=== PATIENT | male | born 1935 | race Caucasian/White ===

== ENCOUNTER 2018-08-19 18:36 | Inpatient (IN) ==
[~2018-08-19 18:36] MED LIST: HEPARIN SOD (PORCINE) 1000 UNIT/ML 10 ML VIAL ONE; TICAGRELOR 90 MG TAB PO ONE
[2018-08-19] MEDS ORDERED: HEPARIN (PORCINE) 1000 UNIT/ML 10 ML (CATH LAB USE ONLY) ONE (18:48)
[2018-08-19] MEDS ORDERED: MIDAZOLAM HCL 1 MG/ML 2ML VIAL ONE (18:48)
[2018-08-19] MEDS ORDERED: fentaNYL citrate 100 MCG/2 ML VIAL ONE (18:48)
[2018-08-19] MEDS ORDERED: NITROGLYCERIN/D5W 100MCG/ML 20ML SYR ONE (18:48)
[2018-08-19] MEDS ORDERED: NiCARDipine HCL INJ 2.5 MG/ML 10 ML AMP ONE (18:48)
[2018-08-19] MEDS ORDERED: Heparin BOLUS **ED Use Only IV SCH (18:50)
[2018-08-19 18:52] LABS: Basophils # (auto) 0.01 K/uL (0-0.2); Basophils % (auto) 0.1 %; Eosinophils # (auto) 0.06 K/uL (0-0.5); Eosinophils % (auto) 0.5 %; Hematocrit (blood only) 41.4 % (42-52); Hemoglobin 14.2 g/dL (14.0-18.0); Immature Granulocytes # (auto) 0.03 K/uL (0.00-0.02); Immature Granulocytes % (auto) 0.3 %; Lymphocytes # (auto) 2.45 K/uL (1.2-3.4); Lymphocytes % (auto) 20.5 %; Mean Corpuscular Hgb Conc 34.3 g/dL (32-36); Mean Corpuscular Volume 95.6 fL (80-100); Mean Platelet Volume 9.8 fL (7.4-10.4); Monocytes # (auto) 0.88 K/uL (0.11-0.59); Monocytes % (auto) 7.4 %; Neutrophils # (auto) 8.54 K/uL (1.4-6.5); Neutrophils % (auto) 71.2 %; Platelet Count 178 K/uL (130-400); RDW Coefficient of Variation 13.2 % (11.5-14.5); RDW Standard Deviation 46.1 fL (36.4-46.3); Red Blood Count 4.33 M/uL (4.7-6.1); White Blood Count 11.97 K/uL (4.8-10.8)
--- NOTE | 2018-08-19 19:00 | Pre Anesthesia Assessment ---
Date of Service August 19, 2018 Pre Sedation Assessment Vital Signs Temp Pulse Resp BP Pulse Ox 08/19/18 18:47 97 08/19/18 18:40 36.6 C 61 20 116/73 97 08/19/18 18:30 54 L 20 98 Cardiovascular RRR, no murmur, no edema Respiratory normal respiratory effort, lungs clear to auscultation Pre-Sedation Airway Assessment Smoking Status: Current every day smoker Hx Sleep Apnea: No Hx Difficult Intubation: No Short, Thick Neck: No Thyromental Distance: > or= 3.5 Finger Breadths Mallampati Class: III Procedure Planning Contraindications for Sedation: none Current Medications Reviewed: Yes Notes The planned sedation has been discussed with the patient. Informed Consent was obtained. I have identified the patient, determined the appropriateness of sedation and have assessed the patient immediately prior to the procedure. All medicine(s) and interventions are by my order.
[2018-08-19 19:02] LABS: iSTAT Creatinine 1.1 mg/dl (0.6-1.3); iSTAT Hemoglobin 14.6 g/dl (14.0-18.0); iSTAT Ionized Calcium 1.22 mmol/l (1.12-1.32); iSTAT Potassium 4.1 mEq/L (3.3-5.0)
[2018-08-19 19:03] LABS: Partial Thromboplastin Ratio 0.8; Partial Thromboplastin Time 22.5 Seconds (21.0-31.0); Prothrombin Time 10.3 Seconds (9.0-12.0)
[2018-08-19 19:09] LABS: Alanine Aminotransferase 18 U/L (12-78); Albumin Level 3.6 gm/dl (3.4-5.0); Aspartate Aminotransferase 17 U/L (15-37); BUN Creatinine Ratio 16.9 (10-20); Blood Urea Nitrogen 20 mg/dl (7-18); Calcium 9.5 mg/dl (8.5-10.1); Carbon Dioxide 25 mmol/L (21-32); Chloride 107 mmol/L (98-107); Est GFR (African American) 64.8; Est GFR (Non-African American) 55.9; Glucose 141 mg/dl (70-99); Potassium 4.3 mmol/L (3.5-5.1); Sodium 140 mmol/L (136-145)
--- NOTE | 2018-08-19 19:09 | Cardiology Consultation ---
Date of Consultation August 19, 2018 Assessment & Plan (1) ACS (acute coronary syndrome): Presentation consistent with lateral STEMI and recommend proceeding with emergent cardiac catheterization and likely primary PCI. No apparent contraindications to procedure. Discussed risks, benefits, alternatives of procedure with patient and they are willing to proceed. Given IV heparin and aspirin in the ED. Further recommendations pending findings of coronary angiography. History of Present Illness History of Present Illness 83-year-old male here with acute chest pain and ECG concerning for acute VA. Patient seen emergently in the ED after heart alert activated upon arrival. Past cardiac history largely unremarkable, echo in 2016 showed preserved LV function with mild MR, grade 1 diastolic dysfunction. Cardiac risk factors include hypertension. Other medical issues include chronic venous insufficiency, glaucoma. Chest pain began this afternoon while walking up a hill to go fishing. 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 Was prescribed SL nitroglycerin at that time. Describes 7 out of 10 pain with associated nausea and initial bowel incontinence. Given 7 sublingual nitroglycerin in route and in the ED and aspirin. Chest pain at time of arrival 5/10. Hemodynamically stable. EKG showed sinus bradycardia with occasional PVCs, septal infarct, subtle ST elevations in 1 and aVL and large peaked T waves across the precordium. Allergies Allergy/AdvReac Type Severity Reaction Status Date / Time PCN Allergy Unknown Unknown Uncoded 08/19/18 19:07 Home Medications Home Medications Medication Instructions Recorded Confirmed Type Unknown Eye Drops 0 drp OPB UD 08/19/18 08/19/18 History valsartan 80 mg PO DAILY 08/19/18 08/19/18 History Patient History Social History Preferred Language: Mauritanian Feels Safe at Home: Yes Review of Systems Review of Systems: Not obtained in the setting of emergent situation Physical Exam Physical Exam: General: Uncomfortable Eyes: Sclerae anicteric HENT: Oropharynx clear Lungs: Clear to auscultation bilaterally, no rhonchi or wheezes Cardiac: Bradycardic, regular, no murmurs Vascular: 2+ radial bilaterally. Distal varicosities and venous stasis changes Abdomen: Soft, nontender, nondistended, positive bowel sounds. Extremities: Well perfused, trace bilateral lower extremity edema Neuro: Nonfocal Psych: Alert orient x3, normal affect and mood Results & Data Vital Signs (Past 12 Hours) Vital Signs Temp Pulse Resp BP Pulse Ox 08/19/18 18:47 97 08/19/18 18:40 36.6 C 61 20 116/73 97 08/19/18 18:30 54 L 20 98
[2018-08-19 19:14] LABS: Albumin Globulin Ratio 0.9 (0.9-2); Alkaline Phosphatase 55 U/L (45-117); Bilirubin,Total 0.7 mg/dl (0.2-1); Creatine Kinase 64 U/L (39-308); Creatine Kinase MB 3.9 ng/ml (0.5-3.6); Globulin 3.8 gm/dl (2.5-4.0); Total Protein 7.4 gm/dl (6.4-8.2)
--- NOTE | 2018-08-19 19:40 | XRay Report ---
XR chest 1V portable CLINICAL HISTORY: 83 years-old Male presenting with Chest pain. TECHNIQUE: Portable upright AP view of the chest was obtained. COMPARISON: None. FINDINGS: Atherosclerosis of the aortic arch. Cardiac silhouette enlarged. Posterior vascular prominence and br onchial wall cuffing. Mildly low lung volumes. Added density at the lung bases with suspected small b ilateral pleural effusions. No large pneumothorax. Degenerative changes of the thoracic spine. Upper abdomen normal. IMPRESSION: 1. Cardiac megaly with volume overload and congestive change. Early/developing pulmonary edema not e xcluded. 2. Suspected small bilateral pleural effusions. Electronically signed by: Jf Gomez M.D. 08/19/2018 7:38 PM
[2018-08-19] MEDS ORDERED: ACETAMINOPHEN 325 MG TAB PO PRN (20:13)
[2018-08-19] MEDS ORDERED: ONDANSETRON INJ 2 MG/ML 2 ML VIAL IV PRN (20:13)
[2018-08-19] MEDS ORDERED: ICU PROTOCOL FOR HYPERGLYCEMIA PRN ×2 (20:19→22:06)
--- NOTE | 2018-08-19 20:25 | Post Anesthesia Assessment ---
Date of Service August 19, 2018 Post Sedation Assessment Vital Signs Temp Pulse Resp BP Pulse Ox 08/19/18 18:47 97 08/19/18 18:40 36.6 C 61 20 116/73 97 08/19/18 18:30 54 L 20 98 Recovery Score Activity: Moves 4 extremities Respiration: Deep Breath/Cough Circulation: +/-20% PreAnes Value Consciousness: Fully Awake Oxygen Saturation: O2 needed for >90% Discharge Sedation Level of Care: Fast Track Phase II Post Sedation Plan On clinical assessment, the patient appears to have tolerated the sedation without complications. Patient is recovering as anticipated. Patient will continue to be monitored by nursing and may be discharged when sedation discharge criteria are met per below protocol. Upon Completions of procedure and additional 15 minutes continue every 5 minute vital signs and the P.A.R. score; then discharge to a Phase I or Fast Track to Phase II per the following guidelines: * Discharge Patient to appropriate Phase II area if PAR is 8 or greater or return to pre- procedure baseline. The post - procedure orders will be as directed. * If PAR score is less than 8 or not return to pre-procedure baseline then patient will follow Phase I monitoring till PAR is reached for Phase II. The Phase I may be done in procedure room or may call to secure a Phase I area. * If naloxone or flumazenil are used for reversal, hold in Phase I for continued monitoring from when last reversal dose was given for a minimum of 60 minutes or longer pending the nurse and/or physician discretion of patient condition before discharge to Phase II. Please call the Sedation Physician to re-evaluate and complete post-note for discharge to Phase II area. Do NOT discharge from procedure sedation or Phase 1 until post- sedation evaluation note is complete by procedure /sedation MD Sedation Discharge Instructions to be given to the patient at discharge to home.
--- NOTE | 2018-08-19 20:38 | Cardiac Catheterization ---
Cardiac Cath Procedure Full Procedure Date August 19, 2018 Pre-Procedure Diagnosis Pre-Procedure Diagnosis: STEMI AUC Score AUC Score: 9 Post-Procedure Diagnosis Post-Procedure Diagnosis: Severe CAD, Successful PCI and Elevated Intracardiac Pressures Procedure(s) Performed Procedure(s) Performed: Coronary Angiography, Left Heart Cath and Drug Eluting Stent Railroad Surveyor Josue Cotton MD Contact Agent(s) cassie Estimated Blood Loss Estimated Blood Loss: 15 Medication(s) Medication(s): Fentanyl, Heparin, Integrilin, Lidocaine 1%, Nicardipine, Nitroglycerin and Versed Medication(s): Ticagrelor Summary of Findings Indication: STEMI/Heart Alert 83-year-old man history of only hypertension and venous insufficiency here with approximately 2-3 hours of substernal chest pain, bowel incontinence. EKG showing lateral ST elevations and large peaked T waves across the precordium. Access: 6 Fr right radial artery Catheters: Galva, EBU 3.5 guide Findings: LM -short, almost separate ostia LAD -moderate caliber vessel, 100% acute occlusion earlymid LAD after takeoff of first septal, first diagonal. Branching first diagonal with mild to moderate disease. Circumflex -large caliber vessel, 20% ostial, luminal irregularities, large left PLB with 30% proximal disease RCA -dominant, 40% mid segment, latemid into distal with 50-60% stenosis. Small PDA without significant disease, mild disease in right PLB LVEDP -19 -- PCI -- Antithrombotic therapy: Heparin, IC Integrilin x1, ticagrelor Procedure: Left main cannulated with EBU 3.5 guide BMW wire passed across lesion into distal vessel Mid LAD lesion predilated with 2.0 compliant balloonplan to have extensive mid LAD disease extending almost down to second diagonal Mid LAD stented with 2.75 x 33 mm Xience Florecita Earlymid LAD stented with 3.5 x 12 Xience Florecita which overlapped with proximal aspect of initial stent Stent post-dilated with 3.5 noncompliant balloon IC vasodilators administered for spasm Post procedure RENETTA 3 flow, stent well expanded with minimal residual stenosis and no apparent cardiac complications. Arterial Closure: TR band Summary: 1. Anterior STEMI/Occluded mid LAD 2. Mild to moderate non-culprit coronary artery disease -50-60% mid to distal RCA 30% proximal large left PLB 3. Elevated intracardiac filling pressure 4. Successful PCI of diffuse mid LAD disease with 2 overlapping drug-eluting stents (3.5 x 12, 2.75 x 33 mm Xience Florecita; postdilated with 3.5 NC). 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 Trend troponins until peak, Check Echo Uptitrate beta-quintin/FAUSTO as BP allows High-dose statin Consult cardiac Rehab Hemodynamics Rest Ao:: 130/66/93 Final Ao: 117/61/86 LV: 118/19 Recommendations Recommendations: PCI without planned CABG Specimens Specimens: None Radiation Exposure (mGy) 2056 Contrast (mls) 190 Fluids (cc crystalloids) Fluids (cc crystalloids): 82 Drains Drains: None Anesthesia Moderate Procedural Complication(s) None Disposition ICU ACC Data: Plant Controls Specialist Cardiac Status Clinical evaluation leading to the procedure CAD Presenation: STEMI Anginal Classification: CCS IV Heart Failure: No Cardiogenic Shock within 24 Hours: No Cardiac Arrest within 24 Hours: No Imaging Studies Past 6 Months: No Stress Studies Past 6 Months: No Diagnostic Physicians Name: Josue Cotton MD Status: Emergency Closure Device Percutaneous Entry Location: Radial Closure Device: Radial Band Recommendations: PCI without planned CABG PCI Indication: Immediate PCI for STEMI First Noted: Subsequent EKG Lesion Segment Name: Mid LAD Culprit Artery: Yes Stenosis Prior to Rx (%): 100 Chronic Total Occlusion: No FFR: No Pre-Procedure RENETTA Flow: 0 Previously Treated Lesion: No Lesion Complexity: Non-High/Non-C Lesion Length (mm): 35 Thrombus Present: Yes Bifurcation Lesion: No Guidewire Across Lesion: Stenosis Post-Procedure (%): 0 Post-Procedure RENETTA Flow: 3 Devices(s) Deployed: Yes Yes Intraprocedure Events Significant Disection: No Perforation: No
[2018-08-19] MEDS: METOPROLOL TARTRATE 25 MG TAB PO SCH (21:16)
[2018-08-19] MEDS: SODIUM CHLORIDE 0.9% 1000ML 1,000 ML IV SCH (21:16)
--- NOTE | 2018-08-19 22:11 | Critical Care Consultation ---
Date of Consultation August 19, 2018 Assessment & Plan (1) ST elevation (STEMI) myocardial infarction: Reason Critically Ill: 83-year-old male with STEMI status post CAMI stent placement x2 to the LAD Neuro - CAM ICU: Negative Cardiac - STEMIS/P CAMI stent x2 to LAD by Dr. Cotton, will follow his recommendation -Integrilin administered in [facility] -Monitoring on telemetry -Follow-up a.m. lipid profile, hemoglobin A1c -Follow-up a.m. echo -Every 6 hours troponins to trend -EKGs as needed -ASA, Lipitor, Brilinta, valsartan HTNcontinue home valsartan Venous insufficiencycompression stockings Respiratory - No pulmonary history, mild pulmonary edema and small bilateral pleural effusions on chest x-ray, currently on room air, will monitor GI - Heart healthy diet RENAL/LYTES - Routine BMPs, maximize electrolytes, creatinine/BUN within normal limits - Voiding, no current issue ENDO - ICU hypoglycemic protocol, follow-up hemoglobin A1c HEME - H&H stable, routine CBCs ID - Positive MRSA nasal swab, no evidence of current infectious process, monitor LINES/IV ACCESS - Peripheral IVs DVT PROPHYLAXIS - SCDs, CODE STATUSas discussed with patient and daughter, patient is to remain a full code at this time. Agree with above, case discussed with my colleague Arron Florence PA-C, for the details of my progress note. (2) ACS (acute coronary syndrome): (3) HTN (hypertension): (4) Venous insufficiency (chronic) (peripheral): History of Present Illness Attending Physician: Alex Lyon MD History of Present Illness 83-year-old male with past medical history hypertension, PVD, and family history of cardiac disease who presented to the ED around 1800 with chest pain described as pressure radiating to the right side of chest that started around 1600 earlier today. Patient states that he was fishing when pain began, he went home and met his daughter who is an ICU nurse. She gave him nitro x4 with no alleviation. EMS was called and gave him nitro and aspirin in route. In the ED, EKG showed anterior septal STEMI, troponins elevated. Heart code initiated and patient was started on heparin drip and taken to [facility] where he received CAMI stent placement x2 to the LAD and was loaded with Brilinta. Upon arrival to the ICU the patient is alert and oriented x4 and appears comfortable on room air. He denies chest pain, shortness of breath, palpitations, syncope, nausea vomiting, changes in vision, changes in mentation, headache, or abdominal pain. He does report a slight numbness in his right fingertips, but has good color and capillary refill and pulses distal to cath site. He remains hemodynamically stable and is sinus rhythm on monitor with occasional PVCs, not requiring vasopressors. We will continue to monitor in ICU overnight for now. Allergies Allergy/AdvReac Type Severity Reaction Status Date / Time Penicillins Allergy Unknown Verified 08/19/18 20:43 Home Medications Home Medications Medication Instructions Recorded Confirmed Type Unknown Eye Drops 0 drp OPB UD 08/19/18 08/19/18 History valsartan 80 mg PO DAILY 08/19/18 08/19/18 History Patient History Medical History HTN (hypertension) Social History Preferred Language: Malay Communication Ability: Effective Social Services Analyst Required: No Beliefs That Will Affect Care: None Current Living Situation: Family Other Information That Helps Us Care for You: No Feels Safe at Home: Yes Safety Concerns: Feels Safe At This Time Smoking Status: Never smoker Do You Dip or Chew Tobacco: No Second Hand Exposure: No Tobacco Cessation Education Requested by Patient: No Hx Alcohol Use: No Hx Substance Use: No Review of Systems Review of Systems: All systems reviewed & are unremarkable except as noted in HPI & below Physical Exam Eyes: PERRL, conjunctivae normal, anicteric sclerae ENMT: external ear and nose normal, oropharynx normal Neck: trachea midline, no thyromegaly Respiratory: normal respiratory effort, lungs clear to auscultation Cardiovascular: RRR, no murmur, no edema Extremities: normal capillary refill Gastrointestinal (Abdomen): normal bowel sounds, soft, nontender, no hepatosplenomegaly Musculoskeletal: no cyanosis or clubbing, extremities motor strength 5/5 Skin: no rashes, warm and dry Neurologic: PERRL, EOMI, accommodation nl, no face palsy, no dysarthria Results & Data Vital Signs (Past 12 Hours) Vital Signs Temp Pulse Pulse Resp BP BP Pulse Ox 08/19/18 21:13 36.6 C 75 75 17 126/81 94 08/19/18 21:06 08/19/18 18:47 97 08/19/18 18:40 36.6 C 61 20 116/73 97 08/19/18 18:30 54 L 20 98 Pulse Ox 08/19/18 21:13 08/19/18 21:06 94 08/19/18 18:47 08/19/18 18:40 08/19/18 18:30 Laboratory Results Laboratory Results - last 24 hr 08/19/18 08/19/18 08/19/18 18:28 18:38 18:38 WBC 11.97 H RBC 4.33 L Hgb 14.2 POC Hgb Hct 41.4 L POC Hct MCV 95.6 MCH 32.8 MCHC 34.3 RDW Std Deviation 46.1 RDW Coeff of Jackelyn 13.2 Plt Count 178 MPV 9.8 Immature Gran % (Auto) 0.3 Neut % (Auto) 71.2 Lymph % (Auto) 20.5 Andrews % (Auto) 7.4 Eos % (Auto) 0.5 Baso % (Auto) 0.1 Immature Gran # (Auto) 0.03 H Neut # (Auto) 8.54 H Lymph # (Auto) 2.45 Andrews # (Auto) 0.88 H Eos # (Auto) 0.06 Baso # (Auto) 0.01 PT 10.3 INR 1.0 APTT 22.5 PTT Ratio 0.8 Activ Coag Time Kaolin 180 H POC Sodium Sodium POC Potassium Potassium POC Chloride Chloride Carbon Dioxide POC Total CO2 Anion Gap POC Anion Gap POC BUN BUN Creatinine POC Creatinine Est Cr Clr Drug Dosing Est GFR ( Amer) Est GFR (Non-Af Amer) BUN/Creatinine Ratio Glucose POC Glucose (other) Calcium POC Ioniz Calcium Jayson Magnesium Total Bilirubin AST ALT Alkaline Phosphatase Total Creatine Kinase CK-MB (CK-2) CK/CKMB % Calc POC Troponin I Total Protein Albumin Globulin Albumin/Globulin Ratio Lipase Nasal Screen MRSA (PCR) 08/19/18 08/19/18 08/19/18 18:38 18:47 18:48 WBC RBC Hgb POC Hgb 14.6 Hct POC Hct 43 MCV MCH MCHC RDW Std Deviation RDW Coeff of Jackelyn Plt Count MPV Immature Gran % (Auto) Neut % (Auto) Lymph % (Auto) Andrews % (Auto) Eos % (Auto) Baso % (Auto) Immature Gran # (Auto) Neut # (Auto) Lymph # (Auto) Andrews # (Auto) Eos # (Auto) Baso # (Auto) PT INR APTT PTT Ratio Activ Coag Time Kaolin POC Sodium 140 Sodium 140 POC Potassium 4.1 Potassium 4.3 POC Chloride 104 Chloride 107 Carbon Dioxide 25 POC Total CO2 23 L Anion Gap 8.0 POC Anion Gap 18.0 POC BUN 19 H BUN 20 H Creatinine 1.18 POC Creatinine 1.1 Est Cr Clr Drug Dosing Not Reportable Est GFR ( Amer) 64.8 Est GFR (Non-Af Amer) 55.9 BUN/Creatinine Ratio 16.9 Glucose 141 H POC Glucose (other) 144 H Calcium 9.5 POC Ioniz Calcium Jayson 1.22 Magnesium 2.0 Total Bilirubin 0.7 AST 17 ALT 18 Alkaline Phosphatase 55 Total Creatine Kinase 64 CK-MB (CK-2) 3.9 H CK/CKMB % Calc 6.1 H POC Troponin I 0.39 H Total Protein 7.4 Albumin 3.6 Globulin 3.8 Albumin/Globulin Ratio 0.9 Lipase 75 Nasal Screen MRSA (PCR) 08/19/18 20:20 WBC RBC Hgb POC Hgb Hct POC Hct MCV MCH MCHC RDW Std Deviation RDW Coeff of Jackelyn Plt Count MPV Immature Gran % (Auto) Neut % (Auto) Lymph % (Auto) Andrews % (Auto) Eos % (Auto) Baso % (Auto) Immature Gran # (Auto) Neut # (Auto) Lymph # (Auto) Andrews # (Auto) Eos # (Auto) Baso # (Auto) PT INR APTT PTT Ratio Activ Coag Time Kaolin POC Sodium Sodium POC Potassium Potassium POC Chloride Chloride Carbon Dioxide POC Total CO2 Anion Gap POC Anion Gap POC BUN BUN Creatinine POC Creatinine Est Cr Clr Drug Dosing Est GFR ( Amer) Est GFR (Non-Af Amer) BUN/Creatinine Ratio Glucose POC Glucose (other) Calcium POC Ioniz Calcium Jayson Magnesium Total Bilirubin AST ALT Alkaline Phosphatase Total Creatine Kinase CK-MB (CK-2) CK/CKMB % Calc POC Troponin I Total Protein Albumin Globulin Albumin/Globulin Ratio Lipase Nasal Screen MRSA (PCR) Positive A Medications Administered Home Medications Unknown Eye Drops 0 drp OPB UD 08/19/18 [History Confirmed 08/19/18] valsartan 80 mg PO DAILY 08/19/18 [History Confirmed 08/19/18] Active Medications Acetaminophen (Tylenol) 650 mg PO Q4H PRN PRN Reason: Mild Pain (scale 1-3) Stop: 09/18/18 20:12 [facility] [place]: 09/19/18 08:59 Atorvastatin Calcium (Lipitor) [facility] [place]: 09/19/18 08:59 Sodium Chloride (Nss 1000ml) 1,000 mls @ 100 mls/hr IV .Q10H [facility] Stop: 09/18/18 20:14 Last Admin: 08/19/18 21:16 Dose: 100 mls/hr Documented by: Metoprolol Tartrate (Lopressor) 12.5 mg PO BID [facility] Stop: 09/18/18 20:59 Last Admin: 08/19/18 21:16 Dose: 12.5 mg Documented by: Miscellaneous (Icu Protocol For Hyperglycemia) 1 ea N/A PRN PRN; Protocol PRN Reason: Hyperglycemia Protocol Stop: 08/21/18 20:18 Ondansetron HCl (Zofran) 4 mg IV Q6H PRN PRN Reason: Nausea And Vomiting Stop: 09/18/18 20:12 Pantoprazole Sodium (Protonix) [facility] [place]: 08/24/18 08:59 Ticagrelor (Brilinta) 90 mg PO BID [facility] Stop: 09/19/18 08:59 Valsartan (Diovan) 80 mg PO DAILY [facility] Stop: 09/19/18 08:59 (1) ST elevation (STEMI) myocardial infarction Involved coronary artery: unspecified coronary artery Qualified Code(s): I21.3 - ST elevation (STEMI) myocardial infarction of unspecified site
--- NOTE | 2018-08-19 22:25 | Emergency Department Note ---
Entered by Cristian Nicole acting as a scribe for History of Present Illness General Chief complaint: Heart Alert Stated complaint: HEART ALERT Source: patient, family and EMS Mode of arrival: EMS Limitations: no limitations History of Present Illness Provider complaint: Chest pain Onset (ago): hour(s) (1) Location: chest and left Radiation: non-radiation Pain Consistency: + constant and + other (improved) Current Pain Intensity: 5 Quality: + other ("Crushing") Associated symptoms: no fever/chills and no shortness of breath Treatments prior to arrival: other (324 Aspirin, 7 of Nitro, Fentanyl 100 mcg, 4 Zofran. ) The patient is an 83 year old male who presents to the Emergency Room with complaints of chest pain. 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 This episode of chest pain resolved spontaneously. The patient's daughter at bedside, who is an ICU nurse, notes that he began to complain of feeling generally unwell today at 1530, about 3 hours prior to arrival. He went fishing at around 1600 and states that he began to feel chest pain at 1630 [place] This chest pain progressively worsened until he got home and was a 7/10 in severity at its worst. There was no shortness of breath at anytime. When he arrived home the daughter administered 4 nitroglycerin tablets and called 911. EMS administered 3 further nitro tablets as well as 324 of Aspirin. EMS also administered 100 of Fentanyl and 4 mg of Zofran after Medical Command Call. He describes his chest pain this evening as "crushing" and rates the current pain as a 5/10. There was no radiation of the pain to his arm, neck, or back. He denies any associated fever or abdominal pain. The patient notes that he went on a 1 mile run on Sunday, 2 days ago. He did not feel any chest pain, but he did not feel like he normally would on his runs. The patient has a history of hypertension, but has no other cardiac history. He has a strong family history or cardiac disease. Home Medications Home Medications Medication Instructions Recorded Confirmed Type Unknown Eye Drops 0 drp OPB UD 08/19/18 08/19/18 History valsartan 80 mg PO DAILY 08/19/18 08/19/18 History Allergies Allergy/AdvReac Type Severity Reaction Status Date / Time Penicillins Allergy Unknown Verified 08/19/18 20:43 Past Med/Surg History Medical History HTN (hypertension) Social History Preferred Language: Welsh Communication Ability: Effective Preservationist Required: No Beliefs That Will Affect Care: None Current Living Situation: Family Other Information That Helps Us Care for You: No Feels Safe at Home: Yes Safety Concerns: Feels Safe At This Time Smoking Status: Never smoker Do You Dip or Chew Tobacco: No Second Hand Exposure: No Tobacco Cessation Education Requested by Patient: No Hx Alcohol Use: No Hx Substance Use: No Review of Systems See HPI for pertinent positives & negatives. and A total of 10 systems reviewed and were otherwise negative Physical Exam Vital Signs Vital Signs - 24 hr 08/19/18 18:30 08/19/18 18:40 08/19/18 18:47 Temperature 36.6 C Temperature Source Oral Sepsis Recent Fever Within 48 Hours No Sepsis New/Unexplained Change in Mental Status No Sepsis Action Taken by Nursing No Action Required Pulse Rate 54 L 61 Pulse Rate [Apical] Pulse Rhythm Regular Regular Pulse Strength Normal Respiratory Rate 20 20 Respiratory Effort / Characteristics Non-Labored Spontaneous Respiratory Depth Normal Respiratory Pattern Regular Blood Pressure 116/73 Blood Pressure [Left Arm] Blood Pressure Mean 87 Blood Pressure Mean [Left Arm] Blood Pressure Position Sitting Pulse Oximetry 98 97 97 Pulse Oximetry [Left Middle Finger] Oxygen Delivery Method Nasal Cannula Room Air Room Air Oxygen Delivery Method [Left Middle Finger] Oxygen Flow Rate 2 2 08/19/18 21:06 08/19/18 21:13 Temperature 36.6 C Temperature Source Oral Sepsis Recent Fever Within 48 Hours Sepsis New/Unexplained Change in Mental Status Sepsis Action Taken by Nursing Pulse Rate 75 Pulse Rate [Apical] 75 Pulse Rhythm Pulse Strength Respiratory Rate 17 Respiratory Effort / Characteristics Respiratory Depth Respiratory Pattern Blood Pressure Blood Pressure [Left Arm] 126/81 Blood Pressure Mean Blood Pressure Mean [Left Arm] 96 Blood Pressure Position Pulse Oximetry 94 Pulse Oximetry [Left Middle Finger] 94 Oxygen Delivery Method Room Air Oxygen Delivery Method [Left Middle Finger] Room Air Oxygen Flow Rate Constitutional: Vital signs reviewed. Eyes: Pupils are equal round reactive to light. Conjunctiva are noninjected. ENT: Pharynx is clear without erythema or exudate. Mucous membranes are moist. Neck supple without meningeal signs. Respiratory: Clear to auscultation bilaterally. Breath sounds are equal bilaterally. Cardiovascular: Regular rate and rhythm. No rubs or gallops. GI: Soft, nondistended and nontender. Bowel sounds are present. Musculoskeletal: No peripheral edema. No lower extremity tenderness. Integumentary: No cyanosis. Neurological: The patient is awake and alert. No focal deficits. Psychiatric: Normal affect. Course 1834: The patient was evaluated in room B1, and a complete history and physical examination were performed. 1852: Dr. Cotton - Interventional Cardiology has arrived at bedside. He will take the patient to the supervisor laboratory animal facility. Administered Medications Sodium Chloride (Nss 1000ml) 1,000 mls @ 100 mls/hr IV .Q10H KATELYN Stop: 09/18/18 20:14 Last Admin: 08/19/18 21:16 Dose: 100 mls/hr Documented by: [id number] Metoprolol Tartrate (Lopressor) 12.5 mg PO BID KATELYN Stop: 09/18/18 20:59 Last Admin: 08/19/18 21:16 Dose: 12.5 mg Documented by: [id number] Discontinued Medications Fentanyl Citrate (Fentanyl Citrate) Confirm Administered Dose 100 mcg .ROUTE .STK-MED ONE Stop: 08/19/18 18:49 Last Increment: 08/19/18 20:17 Dose: 25 mcg Documented by: [id number] Heparin Sodium (Porcine) (Heparin Iv Bolus) Confirm Administered Dose 10,000 units .ROUTE .STK-MED ONE Stop: 08/19/18 18:33 Last Admin: 08/19/18 18:50 Dose: 5,000 units Documented by: [id number] Cosigned by: [id number] Heparin Sodium (Porcine) (Heparin Iv Bolus (Database Development Project Manager Use Only)) Confirm Administered Dose 10,000 units .ROUTE .STK-MED ONE Stop: 08/19/18 18:49 Last Admin: 08/19/18 20:17 Dose: 5,000 units Documented by: [id number] Heparin Sodium/Sodium Chloride (Heparin/Nss 1000 Unit/500ml Flush Bag) Confirm Administered Dose 3,000 units IV .STK-MED ONE Stop: 08/19/18 18:49 Last Admin: 08/19/18 20:17 Dose: 3,000 units Documented by: [id number] Midazolam HCl (Versed) Confirm Administered Dose 2 mg .ROUTE .STK-MED ONE Stop: 08/19/18 18:49 Last Increment: 08/19/18 20:17 Dose: 1 mg Documented by: [id number] Nicardipine HCl (Cardene) Confirm Administered Dose 25 mg .ROUTE .STK-MED ONE Stop: 08/19/18 18:49 Last Admin: 08/19/18 20:16 Dose: 25 mg Documented by: [id number] Nitroglycerin/Dextrose (Nitroglycerin/D5w 100 Mcg/Ml 20ml Syringe) Confirm Administered Dose 2,000 mcg .ROUTE .STK-MED ONE Stop: 08/19/18 18:49 Last Admin: 08/19/18 20:17 Dose: 2,000 mcg Documented by: [id number] Ticagrelor (Brilinta) Confirm Administered Dose 180 mg PO .STK-MED ONE Stop: 08/19/18 18:33 Last Admin: 08/19/18 18:50 Dose: Not Given Documented by: [id number] Medical Decision Making Differential Diagnosis Differential Diagnosis includes: STEMI, aortic aneurysm, aortic dissection, PE, pneumothorax, Medical Records Attestation: I reviewed the patient's medical records. Home Medications Current Medication List: was personally reviewed by me Laboratory Data Attestation: I reviewed the patient's lab results. Result diagrams: 08/19/18 18:38 08/19/18 18:38 Lab Results 08/19/18 08/19/18 08/19/18 Range/Units 18:28 18:38 18:38 WBC 11.97 H (4.8-10.8) K/uL RBC 4.33 L (4.7-6.1) M/uL Hgb 14.2 (14.0-18.0) g/dL POC Hgb (14.0-18.0) g/dl Hct 41.4 L (42-52) % POC Hct (42-52) % MCV 95.6 (80-100) fL MCH 32.8 (25-34) pg MCHC 34.3 (32-36) g/dL RDW Std Deviation 46.1 (36.4-46.3) fL RDW Coeff of Jackelyn 13.2 (11.5-14.5) % Plt Count 178 (130-400) K/uL MPV 9.8 (7.4-10.4) fL Immature Gran % (Auto) 0.3 % Neut % (Auto) 71.2 % Lymph % (Auto) 20.5 % Lenoir % (Auto) 7.4 % Eos % (Auto) 0.5 % Baso % (Auto) 0.1 % Immature Gran # (Auto) 0.03 H (0.00-0.02) K/uL Neut # (Auto) 8.54 H (1.4-6.5) K/uL Lymph # (Auto) 2.45 (1.2-3.4) K/uL Lenoir # (Auto) 0.88 H (0.11-0.59) K/uL Eos # (Auto) 0.06 (0-0.5) K/uL Baso # (Auto) 0.01 (0-0.2) K/uL PT 10.3 (9.0-12.0) Seconds INR 1.0 (0.9-1.1) APTT 22.5 (21.0-31.0) Seconds PTT Ratio 0.8 Activ Coag Time Kaolin 180 H (94-140) SECONDS POC Sodium (135-144) mEq/L Sodium (136-145) mmol/L POC Potassium (3.3-5.0) mEq/L Potassium (3.5-5.1) mmol/L POC Chloride (101-112) mEq/L Chloride (98-107) mmol/L Carbon Dioxide (21-32) mmol/L POC Total CO2 (24-31) mEq/l Anion Gap (3-11) POC Anion Gap (16-25) mmol/L POC BUN (7-18) mg/dl BUN (7-18) mg/dl Creatinine (0.6-1.4) mg/dl POC Creatinine (0.6-1.3) mg/dl Est Cr Clr Drug Dosing Est GFR ( Amer) Est GFR (Non-Af Amer) BUN/Creatinine Ratio (10-20) Glucose (70-99) mg/dl POC Glucose (other) (70-99) mg/dl Calcium (8.5-10.1) mg/dl POC Ioniz Calcium Jayson (1.12-1.32) mmol/l Magnesium (1.8-2.4) mg/dl Total Bilirubin (0.2-1) mg/dl AST (15-37) U/L ALT (12-78) U/L Alkaline Phosphatase (45-117) U/L Total Creatine Kinase (39-308) U/L CK-MB (CK-2) (0.5-3.6) ng/ml CK/CKMB % Calc (0-3.0) POC Troponin I (0-0.045) ng/ml Total Protein (6.4-8.2) gm/dl Albumin (3.4-5.0) gm/dl Globulin (2.5-4.0) gm/dl Albumin/Globulin Ratio (0.9-2) Lipase (73-393) U/L 08/19/18 08/19/18 08/19/18 Range/Units 18:38 18:47 18:48 WBC (4.8-10.8) K/uL RBC (4.7-6.1) M/uL Hgb (14.0-18.0) g/dL POC Hgb 14.6 (14.0-18.0) g/dl Hct (42-52) % POC Hct 43 (42-52) % MCV (80-100) fL MCH (25-34) pg MCHC (32-36) g/dL RDW Std Deviation (36.4-46.3) fL RDW Coeff of Jackelyn (11.5-14.5) % Plt Count (130-400) K/uL MPV (7.4-10.4) fL Immature Gran % (Auto) % Neut % (Auto) % Lymph % (Auto) % Lenoir % (Auto) % Eos % (Auto) % Baso % (Auto) % Immature Gran # (Auto) (0.00-0.02) K/uL Neut # (Auto) (1.4-6.5) K/uL Lymph # (Auto) (1.2-3.4) K/uL Lenoir # (Auto) (0.11-0.59) K/uL Eos # (Auto) (0-0.5) K/uL Baso # (Auto) (0-0.2) K/uL PT (9.0-12.0) Seconds INR (0.9-1.1) APTT (21.0-31.0) Seconds PTT Ratio Activ Coag Time Kaolin (94-140) SECONDS POC Sodium 140 (135-144) mEq/L Sodium 140 (136-145) mmol/L POC Potassium 4.1 (3.3-5.0) mEq/L Potassium 4.3 (3.5-5.1) mmol/L POC Chloride 104 (101-112) mEq/L Chloride 107 (98-107) mmol/L Carbon Dioxide 25 (21-32) mmol/L POC Total CO2 23 L (24-31) mEq/l Anion Gap 8.0 (3-11) POC Anion Gap 18.0 (16-25) mmol/L POC BUN 19 H (7-18) mg/dl BUN 20 H (7-18) mg/dl Creatinine 1.18 (0.6-1.4) mg/dl POC Creatinine 1.1 (0.6-1.3) mg/dl Est Cr Clr Drug Dosing Not Reportable Est GFR ( Amer) 64.8 Est GFR (Non-Af Amer) 55.9 BUN/Creatinine Ratio 16.9 (10-20) Glucose 141 H (70-99) mg/dl POC Glucose (other) 144 H (70-99) mg/dl Calcium 9.5 (8.5-10.1) mg/dl POC Ioniz Calcium Jayson 1.22 (1.12-1.32) mmol/l Magnesium 2.0 (1.8-2.4) mg/dl Total Bilirubin 0.7 (0.2-1) mg/dl AST 17 (15-37) U/L ALT 18 (12-78) U/L Alkaline Phosphatase 55 (45-117) U/L Total Creatine Kinase 64 (39-308) U/L CK-MB (CK-2) 3.9 H (0.5-3.6) ng/ml CK/CKMB % Calc 6.1 H (0-3.0) POC Troponin I 0.39 H (0-0.045) ng/ml Total Protein 7.4 (6.4-8.2) gm/dl Albumin 3.6 (3.4-5.0) gm/dl Globulin 3.8 (2.5-4.0) gm/dl Albumin/Globulin Ratio 0.9 (0.9-2) Lipase 75 (73-393) U/L Imaging Data Radiologist's Impression: XR chest 1V portable CLINICAL HISTORY: 83 years-old Male presenting with Chest pain. TECHNIQUE: Portable upright AP view of the chest was obtained. COMPARISON: None. FINDINGS: Atherosclerosis of the aortic arch. Cardiac silhouette enlarged. Posterior vascular prominence and bronchial wall cuffing. Mildly low lung volumes. Added density at the lung bases with suspected small bilateral pleural effusions. No large pneumothorax. Degenerative changes of the thoracic spine. Upper abdomen normal. IMPRESSION: 1. Cardiac megaly with volume overload and congestive change. Early/developing pulmonary edema not excluded. 2. Suspected small bilateral pleural effusions. Electronically signed by: Jf Gomez M.D. 08/19/2018 7:38 PM ECG Data Attestation: I personally reviewed and interpreted this ECG as follows: Indication: chest pain Rate (beats per minute): 54 Rhythm: sinus bradycardia Findings: + PVC and + ST elevation (anteriolateral - consistent with STEMI) Blood Pressure Blood Pressure Findings: Normal blood pressure MDM Narrative I did provide prehospital medical command for the patient. The patient's prehospital EKG per my interpretation demonstrates sinus bradycardia with anterior lateral ST elevations consistent with a STEMI. I did call a heart alert. I did look for an old EKG which was not available. I did recommend that they treat him with fentanyl and Zofran IV. I did evaluate the patient immediately on arrival as noted above. I did obtain history from the patient as well as his daughter who is an ICU nurse and EMS. The patient was placed on a continuous cardiac exercise specialist. I did order and personally review the patient's 12- lead EKG as described above. He has an anterior lateral STEMI. I did order and personally reviewed the images of the patient's chest x-ray as described above. He has some cardiomegaly with vascular congestion. I did order and review the patient's blood work as noted in the electronic medical record. Initial troponin is 0.39. I did discuss the case with the end trimmer in the emergency department. He was taken emergently to the catheterization lab for further care. Impression & Plan ST elevation (STEMI) myocardial infarction Critical Care Time I have personally spent 35 minutes of critical care time in the direct management of this patient. This includes bedside care, interpretation of diagnostic studies, and testing, discussion with consultants, patient, and family members, and other required patient management activities. This 35 minutes is in excess of all separately billable procedures. Critical Care Time: Yes Total Critical Care Time: 35 Discharge Plan Visit Data Chief Complaint: Heart Alert Stated Complaint: HEART ALERT ED Provider: Clemente Castillo Discharge Problem: ST elevation (STEMI) myocardial infarction Patient Disposition: Admitted As Inpatient Discharge Instructions Interventions: ED Discharge Assessment Last Done: 08/19/18 19:00 Discharge Problem: ST elevation (STEMI) myocardial infarction Qualifiers: Involved coronary artery: unspecified coronary artery Qualified Code(s): I21.3 - ST elevation (STEMI) myocardial infarction of unspecified site The scribe's documentation has been prepared under my direction and personally reviewed by me in its entirety. I confirm that the note above accurately reflects all work, treatment, procedures, and medical decision making performed by me.
[2018-08-20 05:01] LABS: Basophils # (auto) 0.01 K/uL (0-0.2); Basophils % (auto) 0.1 %; Eosinophils # (auto) 0.04 K/uL (0-0.5); Eosinophils % (auto) 0.4 %; Hematocrit (blood only) 39.7 % (42-52); Hemoglobin 13.1 g/dL (14.0-18.0); Immature Granulocytes # (auto) 0.03 K/uL (0.00-0.02); Immature Granulocytes % (auto) 0.3 %; Lymphocytes # (auto) 2.16 K/uL (1.2-3.4); Lymphocytes % (auto) 23.9 %; Mean Corpuscular Volume 95.9 fL (80-100); Mean Platelet Volume 9.9 fL (7.4-10.4); Monocytes # (auto) 0.84 K/uL (0.11-0.59); Monocytes % (auto) 9.3 %; Neutrophils # (auto) 5.96 K/uL (1.4-6.5); Platelet Count 172 K/uL (130-400); RDW Coefficient of Variation 13.4 % (11.5-14.5); RDW Standard Deviation 46.5 fL (36.4-46.3); Red Blood Count 4.14 M/uL (4.7-6.1); White Blood Count 9.04 K/uL (4.8-10.8)
[2018-08-20 05:19] LABS: BUN Creatinine Ratio 15.9 (10-20); Calcium 8.6 mg/dl (8.5-10.1); Creatinine Clr Calc Pharmacy 47.1 ml/min; Est GFR (African American) 69.8; Est GFR (Non-African American) 60.2; Magnesium 1.9 mg/dl (1.8-2.4)
[2018-08-20 05:30] LABS: Phosphorus 2.8 mg/dl (2.5-4.9); Troponin I 18.4 ng/ml (0-0.045)
[2018-08-20] MEDS: SODIUM CHLORIDE 0.9% 1000ML 1,000 ML IV SCH (05:38)
[2018-08-20] MEDS ORDERED: ONDANSETRON INJ 2 MG/ML 2 ML VIAL IV PRN (07:06)
[2018-08-20 07:16] LABS: Estimated Average Glucose 120 mg/dl; Hemoglobin A1C 5.8 % (4.5-5.6)
[2018-08-20] MEDS: ATORVASTATIN 40 MG TAB PO SCH (07:57)
[2018-08-20] MEDS: VALSARTAN 80 MG TAB PO SCH (07:57)
[2018-08-20] MEDS: ASPIRIN 81 MG ECTAB PO SCH (07:57)
[2018-08-20] MEDS: PANTOprazole 40 MG TAB PO SCH (07:57)
[2018-08-20] MEDS ORDERED: PROCHLORPERAZINE 5 MG in SYRINGE 4 ML IV PRN (08:05)
--- NOTE | 2018-08-20 08:14 | History and Physical Report ---
DATE OF ADMISSION: 08/19/2018 CHIEF COMPLAINT: Chest pain. HISTORY OF PRESENT ILLNESS: This is an 83-year-old male with past medical history significant for hypertension, venous insufficiency, sinus bradycardia, history of urinary retention and open angle glaucoma who presents with chest pain and found to have acute myocardial infarction and status post emergent cardiac catheterization and overlapping stents to mid left anterior descending, tolerated the procedure okay, currently chest pain free, resting comfortably in Intensive Care Unit, hemodynamically stable. Denies any shortness of breath. No nausea. No vomiting. No headache. No cough. No abdominal pain. Normal bowel and bladder movements. He has lower extremity edema on and off. No rash. 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 It went away after 1 hour and , then Sunday he went for 1 mile run again, after coming home, he was uncomfortable for some time and today he went fishing, walking uphill, brought the chest pain, so he came home and took a shower, pain was still the same, so he called his daughter who is a nurse and was brought in to the hospital, into the Emergency Room, an electrocardiogram showed sinus bradycardia septal infarct, subtle ST elevations in leads I and aVL and large peaked T waves in pericardium and he was taken to cardiac cath. Heart alert was called. Status post stents to mid left anterior descending lesion. There was 100% occlusion of the left anterior descending, currently resting comfortably. ALLERGIES: PENICILLIN. PAST MEDICAL HISTORY: As mentioned above. PAST SURGICAL HISTORY: Cataract surgery and inguinal hernia repair. MEDICATIONS: The patient is on valsartan 80 mg p.o. b.i.d., amlodipine 2.5 mg p.o. daily, latanoprost 0.005% ophthalmic solution 1 drop into right eye at bedtime, prednisone ophthalmic suspension 4 times a day, Cosopt 1 drop both eyes 2 times a day. FAMILY HISTORY: No significant family history. SOCIAL HISTORY: . No smoking. Alcohol occasional. No drug use. REVIEW OF SYMPTOMS: As per HPI. Rest of review of systems negative. PHYSICAL EXAMINATION: GENERAL: The patient is alert and awake, not in acute distress. VITAL SIGNS: Temperature is 36.6, pulse 74, respirations 17, blood pressure 126/80 and oxygen 94% on room air. HEENT: No pallor. No icterus. Pupils are equal, round and reactive to light. NECK: No JVD. No neck masses. No carotid bruits. CARDIOVASCULAR: S1, S2 heard. Regular rate and rhythm. No murmur. No gallop. RESPIRATORY SYSTEM: Normal AP diameter. No accessory muscle use. No wheezing. No crackles. ABDOMEN: Soft. Bowel sounds present. Nontender. No distention. CENTRAL NERVOUS SYSTEM: Cranial nerves II through XII grossly intact. Nonfocal. EXTREMITIES: Lower extremities, mild pedal edema present. Right wrist, cardiac cath site, no drainage seen. LABORATORY DATA: WBC 11.9, hemoglobin 14.2, hematocrit 41.4 and platelets 178. PT 10.3, INR 1, APTT 22.5. Sodium 140, potassium 4.3, chloride 107, CO2 of 25, BUN 20, creatinine 1.18, glucose 141, calcium 9.5, magnesium 2, total bilirubin 0.7, AST17, ALT 18, alkaline phosphatase 55, total creatinine kinase 64. Point of care troponin 0.39. Lipase 75. Chest x-ray, mild pulmonary edema. Electrocardiogram, sinus rhythm with PVCs at a rate of 65. Anteroseptal infarct present. ASSESSMENT AND PLAN: This is an 83-year-old male who presents with acute myocardial infarction. 1. Acute myocardial infarction, status post cardiac catheterization and found to have 100% occlusion of mid left anterior descending, status post 2 stents Loaded with Brilinta,started on aspirin, high dose statin, metoprolol 12.5 b.i.d., Follow serial cardiac enzymes, echocardiogram. Closely monitor in the Intensive Care Unit. Follow lipid profile. Further management as per Cardiology. 2. Hypertension, currently on Diovan and Lopressor. We will monitor his blood pressure. 3. Deep venous thrombosis prophylaxis, sequential compression devices. DISPOSITION: Closely monitor in the Intensive Care Unit. Level 1 full code. MTDD
[2018-08-20] MEDS: METOPROLOL TARTRATE 25 MG TAB PO SCH ×2 (09:17→21:20)
[2018-08-20] MEDS: TICAGRELOR 90 MG TAB PO SCH ×2 (09:18→21:21)
--- NOTE | 2018-08-20 09:35 | Cardiology Progress Note ---
Date of Service August 20, 2018 Assessment & Plan (1) ST elevation (STEMI) myocardial infarction: 2. Mild LV dysfunction EF 45-50%, apical akinesis 3. Moderate non-culprit coronary artery disease 4. Nonsustained VT, frequent PVCs 5. Hypertension 6. Chronic venous insufficiency Chest pain resolved, hemodynamically stable overnight. LV function largely preserved, modest troponin elevation. Well-perfused on exam. No significant congestion on exam. Dilated IVC on echo Stop IV fluids Continue dual anti-platelet therapy with aspirin, ticagrelor Continue low-dose beta-quintin and home valsartan Continue high intensity statin From a cardiac standpoint okay for transfer to telemetry today. Appreciate ICU and hospital medicine team care. Subjective Feeling okay this morning. Reports mild vertigo-like symptoms this morning. Denies chest pain. Denies significant shortness of breath. Telemetry reviewbrief episodes of nonsustained VT, max 11 beats. Review of Systems Review of Systems: All systems reviewed & are unremarkable except as noted in HPI & below Physical Exam Physical Exam: General: Comfortable, no acute distress Eyes: Sclerae anicteric HENT: Oropharynx clear mucous membranes moist Lungs: Clear to auscultation bilaterally, no rhonchi or wheezes Cardiac: Regular rate with occasional premature beat Vascular: Right radial artery access site with no ecchymosis, hematoma. Distal pulse and sensation intact. Abdomen: Soft, nontender, nondistended, positive bowel sounds. Extremities: Well perfused, no peripheral edema Skin: No rashes or lesions. Neuro: Nonfocal Psych: Alert orient x3, normal affect and mood Results & Data Vital Signs (Past 12 Hours) Vital Signs Temp Pulse Pulse Resp BP Pulse Ox Pulse Ox 08/20/18 08:00 36.8 C 54 L 84 20 110/62 96 97 08/20/18 06:00 57 L 12 138/67 97 08/20/18 05:00 53 L 17 129/71 96 08/20/18 04:00 37 C 48 L 14 111/59 L 95 08/20/18 03:00 52 L 17 134/70 96 08/20/18 02:00 50 L 16 112/66 95 08/20/18 01:00 54 L 19 106/45 L 96 08/20/18 00:00 36.7 C 53 L 17 101/48 L 95 08/19/18 22:15 64 15 132/76 96 08/19/18 22:06 56 L 08/19/18 22:00 73 19 145/80 H 97 08/19/18 21:45 74 15 119/82 96 08/19/18 21:30 87 16 128/75 97 (1) ST elevation (STEMI) myocardial infarction Involved coronary artery: unspecified coronary artery Qualified Code(s): I 21.3 - ST elevation (STEMI) myocardial infarction of unspecified site
--- NOTE | 2018-08-20 15:14 | Hospitalist Progress Note ---
Date of Service August 20, 2018 Assessment & Plan (1) ST elevation (STEMI) myocardial infarction: ST elevation myocardial infarction involving the left anterior descending artery -had PCI of diffuse mid LAD disease with 2 overlapping drug-eluting stents (3.5 x 12, 2.75 x 33 mm Xience Florecita; postdilated with 3.5 NC) on this admission -Mild LV dysfunction EF 45-50%, apical akinesis Continue dual anti-platelet therapy with aspirin, ticagrelor Continue low-dose beta-quintin and home valsartan Continue high intensity statin Nonsustained VT, frequent PVCs -Telemetry review after stent placement: brief episodes of nonsustained VT, max 11 beats on 08/20/18 (2) HTN (hypertension): Continue low-dose beta-quintin and home valsartan Disposition: will transfer from ICU to telemetry bed Subjective Patient seen and examine din the ICU bed. Patient's daughter at the bedside. Patient denies acute chest pain currently. on room air, denies shortness of breath. no abdomen pain. no vomiting. no pain of extremities Physical Exam Constitutional: WD/WN, vitals as above Eyes: PERRL, conjunctivae normal, anicteric sclerae EOM intact bilaterally ENMT: external ear and nose normal, oropharynx normal Neck: trachea midline, no thyromegaly normal visual inspection Respiratory: normal respiratory effort, lungs clear to auscultation Cardiovascular: Rate/Rhythm: regular rhythm and + bradycardic Gastrointestinal (Abdomen): normal bowel sounds, soft, nontender, no hepatosplenomegaly Musculoskeletal: Head/Neck/Chest: normocephalic and head atraumatic Neurologic: PERRL, EOMI, accommodation nl, no face palsy, no dysarthria Psychiatric: A+Ox3, euthymic affect Results & Data Vital Signs (Past 12 Hours) Vital Signs Temp Pulse Pulse Resp BP BP Pulse Ox 08/20/18 13:00 49 L 18 107/61 96 08/20/18 12:00 36.9 C 46 L 54 L 18 94/68 L 96/51 L 95 08/20/18 11:37 50 L 18 119/75 97 08/20/18 11:03 50 L 20 97 08/20/18 10:00 51 L 7 L 124/75 95 08/20/18 09:00 51 L 14 145/75 H 95 08/20/18 08:01 56 L 21 131/75 97 08/20/18 08:00 36.8 C 60 84 22 110/62 94 08/20/18 07:11 59 L 21 152/81 H 94 08/20/18 07:10 57 L 23 08/20/18 07:01 122/82 08/20/18 06:00 57 L 12 138/67 97 08/20/18 05:00 53 L 17 129/71 96 08/20/18 04:00 37 C 48 L 14 111/59 L 95 Pulse Ox 08/20/18 13:00 08/20/18 12:00 08/20/18 11:37 08/20/18 11:03 08/20/18 10:00 08/20/18 09:00 08/20/18 08:01 08/20/18 08:00 97 08/20/18 07:11 08/20/18 07:10 08/20/18 07:01 08/20/18 06:00 08/20/18 05:00 08/20/18 04:00 (1) ST elevation (STEMI) myocardial infarction Involved coronary artery: unspecified coronary artery Qualified Code(s): I21.3 - ST elevation (STEMI) myocardial infarction of unspecified site
--- NOTE | 2018-08-20 17:57 | Critical Care Progress Note ---
Date of Service August 20, 2018 Assessment & Plan (1) ST elevation (STEMI) myocardial infarction: Impression: 1. ST elevation MT, status post 2 CAMI to LAD. 2. Hypertension. 3. MRSA colonization. 4. History of vertigo with ongoing nausea. 5. Chest pain, improving. Plan: 1. Appreciate Dr. Cotton input. 2. Compazine for nausea, Zofran did not help his nausea. 3. Post PCI treatment per cardiology. 4. Oral intake. 5. Physical therapy with ambulation. 6. Consider treatment of vertigo if he starts having symptoms with ambulation. 7. Disposition plan to stepdown if okay with Dr. Cotton. 8. Discussed with the staff on rounds and details, critical care time spent with the patient including family discussion was 35 minutes. Thank you, will follow as needed. Subjective The patient is feeling much better, continues to have remnant chest pain mainly on the left side, but is more of a stone sitting on his chest feeling which was much better according to him than it was before, it is down from 10/10-3/10. He did have episodes of bradycardia with occasional PVCs, nausea was persistent but vomiting did not occur, responded to Compazine. Otherwise no other events overnight. Review of Systems Review of Systems: Apart from the chest pain, and the nausea, he denies any other symptoms. Patient does have history of vertigo but he has not been out of bed to justify it. No visual disturbances, no abdominal pain, no change in bowel movements, no urinary retention, no increased swelling in his lower extremities, no pain in his calves, denies any focal neurologic symptoms. Physical Exam Physical Exam: Vital signs are stable, heart rate is 55, 96% on room air, S1- S2 regular rate and rhythm, distant breath sounds bilaterally, abdomen is benign, no edema, no neurologic deficit, no skin rash. Results & Data Vital Signs (Past 12 Hours) Vital Signs Temp Pulse Pulse Resp BP BP Pulse Ox 08/20/18 16:00 36.6 C 55 L 20 118/83 96 08/20/18 13:00 49 L 18 107/61 96 08/20/18 12:00 36.9 C 46 L 54 L 18 94/68 L 96/51 L 95 08/20/18 11:37 50 L 18 119/75 97 08/20/18 11:03 50 L 20 97 08/20/18 10:00 51 L 7 L 124/75 95 08/20/18 09:00 51 L 14 145/75 H 95 08/20/18 08:01 56 L 21 131/75 97 08/20/18 08:00 36.8 C 60 84 22 110/62 94 08/20/18 07:11 59 L 21 152/81 H 94 08/20/18 07:10 57 L 23 08/20/18 07:01 122/82 08/20/18 06:00 57 L 12 138/67 97 Pulse Ox 08/20/18 16:00 08/20/18 13:00 08/20/18 12:00 08/20/18 11:37 08/20/18 11:03 08/20/18 10:00 08/20/18 09:00 08/20/18 08:01 08/20/18 08:00 97 08/20/18 07:11 08/20/18 07:10 08/20/18 07:01 08/20/18 06:00 Laboratory Results Labs were reviewed, elevated troponin which is expected, positive MRSA in the nares. Diagnostic Findings Chest x-ray with mild pulmonary vascular congestion and cardiomegaly. (1) ST elevation (STEMI) myocardial infarction Involved coronary artery: unspecified coronary artery Qualified Code(s): I21.3 - ST elevation (STEMI) myocardial infarction of unspecified site
[2018-08-21 06:31] LABS: BUN Creatinine Ratio 12.1 (10-20); Calcium 8.8 mg/dl (8.5-10.1); Est GFR (African American) 55.6; Potassium 3.9 mmol/L (3.5-5.1)
[2018-08-21] MEDS: VALSARTAN 80 MG TAB PO SCH (08:39)
[2018-08-21] MEDS: TICAGRELOR 90 MG TAB PO SCH (08:39)
[2018-08-21] MEDS: PANTOprazole 40 MG TAB PO SCH (08:39)
[2018-08-21] MEDS: ATORVASTATIN 40 MG TAB PO SCH (08:40)
[2018-08-21] MEDS: METOPROLOL TARTRATE 25 MG TAB PO SCH (08:40)
[2018-08-21] MEDS: ASPIRIN 81 MG ECTAB PO SCH (08:40)
--- NOTE | 2018-08-21 08:57 | Hospitalist Progress Note ---
Date of Service August 21, 2018 Assessment & Plan (1) ST elevation (STEMI) myocardial infarction: STEMI involving the left anterior descending artery -S/P PCI of diffuse mid LAD disease with 2 overlapping drug-eluting stents (3.5 x 12, 2.75 x 33 mm Xience Florecita; postdilated with 3.5 NC). -Echo- Mild LV dysfunction EF 45-50%, apical akinesis Continue dual anti-platelet therapy with aspirin, ticagrelor Continue Metoprolol tartarate 12.5 mg BID- started here and home valsartan Continue high intensity statin Nonsustained VT, frequent PVCs -Telemetry review after stent placement: brief episodes of nonsustained VT, max 11 beats on 08/20/18 and overnight (2) HTN (hypertension): -Continue low-dose beta-quintin and home valsartan Disposition: Transferred from ICU to Floor yesterday Cleared for discharge to home Subjective Patient is doing better. Denies any chest pain, SOB, cough, fever, chills. No leg swelling No hypoxia Tele- Had 6 beats of Non sustained V tach yesterday night Physical Exam Physical Exam: Constitutional WD/WN, vitals as above Eyes PERRL, conjunctivae normal, anicteric sclerae EOM intact bilaterally ENMT external ear and nose normal, oropharynx normal Neck trachea midline, no thyromegaly normal visual inspection Respiratory normal respiratory effort, lungs clear to auscultation Cardiovascular Rate/Rhythm: regular rhythm and + bradycardic Gastrointestinal (Abdomen) normal bowel sounds, soft, nontender, no hepatosplenomegaly Musculoskeletal Head/Neck/Chest: normocephalic and head atraumatic Neurologic PERRL, EOMI, accommodation nl, no face palsy, no dysarthria Psychiatric A+Ox3, euthymic affect Results & Data Vital Signs (Past 12 Hours) Vital Signs Temp Pulse Pulse Resp BP BP Pulse Ox 08/21/18 07:32 36.7 C 56 L 23 130/73 96 08/21/18 03:35 37 C 56 L 16 137/62 95 08/21/18 01:54 50 L 08/20/18 23:10 37.0 C 55 L 20 121/58 L 93 08/20/18 21:18 58 L (1) ST elevation (STEMI) myocardial infarction Involved coronary artery: unspecified coronary artery Qualified Code(s): I21.3 - ST elevation (STEMI) myocardial infarction of unspecified site
--- NOTE | 2018-08-21 11:57 | Cardiology Progress Note ---
Date of Service August 21, 2018 Assessment & Plan (1) ST elevation (STEMI) myocardial infarction: 2. Mild LV dysfunction EF 45-50%, apical akinesis 3. Moderate non-culprit coronary artery disease 4. Nonsustained VT, frequent PVCs 5. Hypertension 6. Chronic venous insufficiency Patient chest pain-free, up walking halls. From a cardiac standpoint okay for discharge today. Home on: Aspirin 81 mg daily Ticagrelor 90 mg twice daily Atorvastatin 80 mg daily Metoprolol 12.5 twice daily Valsartan 80 mg daily Protonix 40 mg Follow-up with me in 2 weeks. Appreciate hospital medicine team care. Subjective Feels well. Up walking halls this morning without symptoms. No other new concerns today. Tele -- NSVT 7-8 beats. Bradycardia overnight into 40s. Review of Systems Review of Systems: All systems reviewed & are unremarkable except as noted in HPI & below Physical Exam Physical Exam: General: Comfortable, no acute distress Eyes: Sclerae anicteric, extraocular movements intact HENT: Oropharynx clear mucous membranes moist Neck: Normal carotid upstrokes, no bruits. No JVD. Lungs: Clear to auscultation bilaterally, no rhonchi or wheezes Cardiac: Regular, occasional premature beats, no significant murmurs Vascular: Right radial artery access site with no ecchymosis, hematoma. Distal pulse and sensation intact. Abdomen: Soft, nontender, nondistended, positive bowel sounds. Extremities: Well perfused, no peripheral edema Skin: No rashes or lesions. Neuro: Nonfocal Psych: Alert orient x3, normal affect and mood Results & Data Vital Signs (Past 12 Hours) Vital Signs Temp Pulse Pulse Resp BP Pulse Ox 08/21/18 10:57 37.0 C 47 L 20 120/64 94 08/21/18 07:32 36.7 C 56 L 23 130/73 96 08/21/18 03:35 37 C 56 L 16 137/62 95 08/21/18 01:54 50 L (1) ST elevation (STEMI) myocardial infarction Involved coronary artery: unspecified coronary artery Qualified Code(s): I21.3 - ST elevation (STEMI) myocardial infarction of unspecified site
--- NOTE | 2018-08-21 12:06 | Discharge Summary ---
Date of Service August 21, 2018 Admission HPI Per Admitting Provider HISTORY OF PRESENT ILLNESS: This is an 83-year-old male with past medical history significant for hypertension, venous insufficiency, sinus bradycardia, history of urinary retention and open angle glaucoma who presents with chest pain and found to have acute myocardial infarction and status post emergent cardiac catheterization and overlapping stents to mid left anterior descending, tolerated the procedure okay, currently chest pain free, resting comfortably in Intensive Care Unit, hemodynamically stable. Denies any shortness of breath. No nausea. No vomiting. No headache. No cough. No abdominal pain. Normal bowel and bladder movements. He has lower extremity edema on and off. No rash. 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 It went away after 1 hour and , then Sunday he went for 1 mile run again, after coming home, he was uncomfortable for some time and today he went fishing, walking uphill, brought the chest pain, so he came home and took a shower, pain was still the same, so he called his daughter who is a nurse and was brought in to the hospital, into the Emergency Room, an electrocardiogram showed sinus bradycardia septal infarct, subtle ST elevations in leads I and aVL and large peaked T waves in pericardium and he was taken to cardiac cath. Heart alert was called. Status post stents to mid left anterior descending lesion. There was 100% occlusion of the left anterior descending, currently resting comfortably. Principal Diagnosis 1. STEMI 2. S/P Cardiac cath x 2 stents CAMI Discharge Exam Constitutional WD/WN, vitals as above Eyes PERRL, conjunctivae normal, anicteric sclerae EOM intact bilaterally ENMT external ear and nose normal, oropharynx normal Neck trachea midline, no thyromegaly normal visual inspection Respiratory normal respiratory effort, lungs clear to auscultation Cardiovascular Rate/Rhythm: regular rhythm and + bradycardic Gastrointestinal (Abdomen) normal bowel sounds, soft, nontender, no hepatosplenomegaly Musculoskeletal Head/Neck/Chest: normocephalic and head atraumatic Neurologic PERRL, EOMI, accommodation nl, no face palsy, no dysarthria Psychiatric A+Ox3, euthymic affect Discharge Data Allergies Allergy/AdvReac Type Severity Reaction Status Date / Time Penicillins Allergy Unknown Verified 08/19/18 20:43 Consultations 08/19/18 20:20 Consult Cardiac Rehabilitation Routine 08/19/18 20:21 Consult Case Management - Discharge Planning Routine Consult Outreach Director Routine 08/19/18 21:58 Consult Cardiology Routine 08/19/18 22:06 Consult Case Management - Discharge Planning Routine Procedures Performed Operation Date: 08/19/18 18:45 Actual Procedures p Aspiration/PCI w/CAMI for Stemi - José Antonio Cotton MD s Cath, Left with Cors and Vent - José Antonio Cotton MD s Cineradiography w/Routine Exam - José Antonio Cotton MD Ordered Studies 08/19/18 18:46 CL Cath Imgs for PACS use only Stat Hospital Course (1) ST elevation (STEMI) myocardial infarction: STEMI involving the left anterior descending artery -S/P PCI of diffuse mid LAD disease with 2 overlapping drug-eluting stents (3.5 x 12, 2.75 x 33 mm Xience Florecita; postdilated with 3.5 NC). -Echo- Mild LV dysfunction EF 45-50%, apical akinesis Newly started on dual anti-platelet therapy with aspirin, ticagrelor this admission Continue Metoprolol tartarate 12.5 mg BID- started here . Continue with home valsartan Continue high intensity statin-atorvastatin 80 mg q HS Nonsustained VT, frequent PVCs -Telemetry review after stent placement: brief episodes of nonsustained VT, max 11 beats on 08/20/18 and overnight 6 beats -On metoprolol -Cardiology aware (2) HTN (hypertension): -Continue low-dose beta-quintin and home valsartan Disposition: Transferred from ICU to Floor yesterday Cleared for discharge to home by cardiology today Updated daughter by bedside (RN at [facility]) Total Time Total Time Spent Total Time Spent (In Minutes): 38 minutes Discharge Plan Discharge Items Patient Disposition: Home - Self-Care Reason For Visit: STEMI Discharge Diagnosis: ST Elevation Myocardial Infarction Condition: Good Discharge Goals: Improve disease control Activity: Resume your previous activity Non-emergency contact: Primary Care Provider Call non-emergency contact if: your symptoms worsen Follow-up/Referrals: Annemarie Moralez MD [Hospitalist] - 08/26/18 10:05 am Diet: Heart Healthy Addtl Provider Instructions: You were diagnosed with STEMI (heart attack) during this admission You had a cardiac catheterization , 2 drug eluting stents were placed. MEDICATION CHANGES 1. New medication: Metoprolol Tartarate 12.5 mg PO twice a day 2. New medication: Protonix 40 mg daily 3. New medication: Ticagrelor 90 mg po twice a day, Aspirin 81 mg daily 4. New medication- Atorvastatin 80 mg daily Prescriptions: New aspirin [Ecotrin Low Strength] 81 mg Tablet,Delayed Release (Dr/Ec) 81 mg PO QAM 30 Days Qty: 30 RF: 0 pantoprazole 40 mg Tablet,Delayed Release (Dr/Ec) 40 mg PO QAM 30 Days Qty: 30 RF: 0 metoprolol tartrate 25 mg Tablet 12.5 mg PO BID 30 Days Qty: 30 RF: 0 Brilinta 90 mg Tablet 90 mg PO BID 30 Days Qty: 60 RF: 0 atorvastatin 80 mg tablet 80 mg PO DAILY Qty: 30 RF: 0 Continued valsartan 80 mg Tablet 80 mg PO DAILY RF: 0 Unknown Eye Drops OPB UD RF: 0 Stand-Alone Forms: [facility] Discharge Orders: Discharge Order (Routine); Ordered 08/21/18 Ordered By: Luanne Nair Admission Data Admit Date/Time: 08/19/18 20:21 Attending Provider: Luanne Nair Admit Provider: Alex Lyon Primary Care Provider: Figueroa Tam Other Providers: Ellis Mendez ; José Antonio Cotton ; Clnit Martin Service: Telemetry Other Pending Studies at Discharge: No
--- OUTSIDE RECORDS SUMMARY | 2018-08-26 15:47 | External Medical Summary | Continuity of Care Document ---
:1935 Author Name Andrew Moore, Provider Address Unavailable Unavailable , Care Team Providers Name Role Phone Josue [email or web address] Dalal Unavailable Unavailable Unavailable Unavailable Unavailable Problems Venous insufficiency (459.81) (I87.2) Hyperlipidemia (272.4) (E78.5) Hypertension (401.9) (I10) Raynauds phenomenon (443.0) (I73.00) Edema (782.3) (R60.9) Chronic rhinitis (472.0) (J31.0) Glaucoma (365.9) (H40.9) Allergies and Adverse Reactions Penicillins (Allergy) Reaction: Swelling , Hives Medications Xalatan SOLN; INSTILL 1 DROP IN BOTH EYES AT BEDTIME. Refills: 0 Losartan Potassium 25 MG Oral Tablet; TAKE 1 TABLET DAILY. Quantity: 90 Refills: 3 Timolol Maleate 10 MG Oral Tablet; TAKE 1 TABLET EVERY 12 HO URS DAILY. Refills: 0 Procedures History of Hernia Repair Status: Complet ed History of Cataract Surgery Status: Comp leted Immunizations Immunizations not documented Family History Father No pertinent family history (V49.89) (Z78.9) Status: Active Social History - Smoking Status Never smoker Plan of Treatment Planned Encounters Appointment; Josue Cotton M.D. Start: 05-Sep-2018 11:0 0 Request Planned Observations Planned Goals not documented Results X-Ray Chest 1 View Portable (Pending) [facility] 19-Aug-2018 19:37 X-Ray Chest 1 VW Portable (CXR1P) [place], [place] [phone] XRay Report Sukh t: JONATHAN HADLEY Admit Date: 08/19 MR#: [id number] Address1: [address] [place] [address] Acct ID:[id number] Address2: Date: 1935 [facility] Zip: [facility] [address] Age: 83 Location: Sex: M Room/Bed : Att Phy: José Antonio Cotton MD Diagnosis: HEART ALERT Cassandra Phy: Figueroa Tam, Service Date: 08/19/18 [facility] Phy: Interpreting Phy: Sergio Gomez MD Admit Phy : Ordering Phy: Clemente Castillo MD cc: XR chest 1V portable CLINICAL HISTORY: 83 years -old Male presenting with Chest pain. TECHNIQUE: Portable upright AP view of t he chest was obtained. COMPARISON: Non e. FINDINGS: Atherosclerosis of the aor tic arch. Cardiac silhouette enlarged. Poste rior vascular prominence and bronchial wall cuffing. Mildly low lung volumes. Added density at the lung bases with suspected small bilateral pleural effusions. No la rge pneumothorax. Degenerative changes of th e thoracic spine. Upper abdomen normal. IMPRESSION: 1. Cardiac megaly with vo lume overload and congestive change. Early/developing pulmonary edema notexcl uded. 2. Suspected small bilateral pleur al effusions. Electronically sig olievr by: Jf Gomez M.D. 08/19/2018 7:3 8 PM Dictated: 08/19/181936 Transcribed: 08/19/181936 Encounters Appointment; Josue Cotton M.D. 05-Sep-2018 11:00 Encounter Diagnosis: Problem not documented
--- OUTSIDE RECORDS SUMMARY | 2018-08-26 15:48 | External Medical Summary | Continuity of Care Document ---
:1935 Author Name Andrew Moore, Provider Address Unavailable Unavailable , Care Team Providers Name Role Phone Josue [email or web address] Dalal Unavailable Unavailable Unavailable Unavailable Unavailable Problems Glaucoma (365.9) (H40.9) Chronic rhinitis (472.0) (J31.0) Edema (782.3) (R60.9) Raynauds phenomenon (443.0) (I73.00) Hypertension (401.9) (I10) Hyperlipidemia (272.4) (E78.5) Venous insufficiency (459.81) (I87.2) Allergies and Adverse Reactions Penicillins (Allergy) Reaction: [...] (Pending) [facility] 19-Aug-2018 19:37 X-Ray Chest 1 VW Portable (CXR1P) [place], [place] [phone] XRay Report Sukh t: JONATHAN HADLEY Admit Date: 08/19 MR#: [id number] Address1: [address] [place] [address] Acct ID:[id number] Address2: Date: 1935 [facility] Zip: [facility] [address] Age: 83 Location: Sex: M Room/Bed : Att Phy: José Antonio Cotton MD Diagnosis: HEART ALERT Cassandra Phy: Figueroa Tam, Service Date: 08/19/18 [facility] Phy: Interpreting Phy: Sergio Gomez MD Admit [...] small bilateral pleur al effusions. Electronically sig oliver by: Jf Gomez M.D. 08/19/2018 7:3 8 PM Dictated: 08/19/181936 Transcribed: 08/19/181936 Encounters Appointment; Josue Cotton M.D. 05-Sep-2018 11:00 Encounter Diagnosis: Problem not documented
== END 2018-08-21 12:22 | disposition home or self-care (01) | DRG 247 ==
LOC: ED 18:36 → CC 19:19 → SUATTDRO 20:21 → 1E 20:21 → 2E 08-20 14:03